=== PATIENT | female | born 1995 | race Caucasian/White ===

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

== ENCOUNTER → 2018-09-15 | Outpatient (CLI) | payer OTHER ==
[~2018-09-15] MED LIST: ZOFRAN 4MG T4 MG/TAB PO
== END ==
LOC: COL.RAD 09:45
DX: R10.9 Unspecified abdominal pain (principal)

== ENCOUNTER → 2018-10-09 | Outpatient (CLI) | payer OTHER | LOC: COL.RAD 07:58 | DX: R10.9 Unspecified abdominal pain (principal) | CPT/HCPCS: A9537 ==